=== PATIENT | female | born 1960 | race Caucasian/White ===

== ENCOUNTER 2024-04-20 08:08 | Day surgery (SDC) | payer OTHER ==
[~2024-04-20] VITALS: Ht 162.6 cm; Wt 84.2 kg
[2024-04-20] MEDS ORDERED: Lactated Ringer's 1,000 ML IV ONE ×2 (08:19→08:58)
[2024-04-20] MEDS ORDERED: propofoL 50 ML IV ONE (08:19)
[2024-04-20] MEDS ORDERED: AMITIZA (08:26)
[2024-04-20] MEDS ORDERED: LEVSOD100 (08:28)
[2024-04-20] MEDS ORDERED: AMLODIPINE-BEN1 EAC4 (08:32)
[2024-04-20] MEDS ORDERED: ALBU90OI (08:33)
[2024-04-20] MEDS ORDERED: ZOLP5 (08:33)
[2024-04-20] MEDS ORDERED: ESOMEPRAZOLE SO20 MG (08:34)
[2024-04-20] MEDS ORDERED: VITAMIN D350 MC3 (08:35)
--- NOTE | 2024-04-20 08:59 | NUR ---
04/20/24 0859 SHAHRIAR PEREZ TROUBLE FINDING IV SITE
[2024-04-20] MEDS ORDERED: Midazolam HCL 1 MG/ML 5MLVIAL ONE (10:20)
[2024-04-20] MEDS ORDERED: Citric Acid/Sodium Citrate 30 ML BTL ONE (12:05)
--- NOTE | 2024-04-20 12:58 | NUR ---
04/20/24 1258 Kristie Pratt LATE ENTRY IV REMOVED BY DR LINK AT 1210. PRESSURE HELD AT SITE WITH GAUZE FOR 5 MINUTES UNTIL 1215. SITE CHECKED AT 1215, NO OOZING OF BLOOD. SITE TAPED DOWN WITH GAUZE DIRECTED BY DR LINK. PT ADVISED TO HOLD PRESSURE IF SITE OOZES. SITE CHECKED PRIOR TO PT LEAVING AT 1230. NO OOZING OF BLOOD AT THAT TIME.
== END 2024-04-20 12:30 | disposition home or self-care (01) ==
LOC: ORSCSDS 08:08
PROVIDERS: Internal Medicine Gastroenterology
PROC: 0DBM8ZX Excision of Descending Colon, Via Natural or Artificial Opening Endoscopic, Diagnostic (ICD-10-PCS; principal; 2024-04-20 09:30)
PROC: 0DBP8ZX Excision of Rectum, Via Natural or Artificial Opening Endoscopic, Diagnostic (ICD-10-PCS; principal; 2024-04-20 09:30)
PROC: 0DJ08ZZ Inspection of Upper Intestinal Tract, Via Natural or Artificial Opening Endoscopic (ICD-10-PCS; principal; 2024-04-20 09:30)
DX: K21.9 Gastro-esophageal reflux disease without esophagitis (principal); K58.1 Irritable bowel syndrome with constipation; D12.4 Benign neoplasm of descending colon; A63.0 Anogenital (venereal) warts; K64.8 Other hemorrhoids; Z80.0 Family history of malignant neoplasm of digestive organs; Z86.010 Personal history of colon polyps; R12 Heartburn; I10 Essential (primary) hypertension; J44.9 Chronic obstructive pulmonary disease, unspecified; J45.909 Unspecified asthma, uncomplicated; M35.00 Sjogren syndrome, unspecified; Z98.84 Bariatric surgery status; Z79.899 Other long term (current) drug therapy; F17.210 Nicotine dependence, cigarettes, uncomplicated
CPT/HCPCS: 88305; A9270; J2250; J2704; J7120